=== PATIENT | female | born 2005 | race Caucasian/White ===

== ENCOUNTER 2024-05-05 13:09 | Emergency (ER) | payer BC ==
[2024-05-05] MEDS ORDERED: HYDROcodone/Acetaminophen 5/325 mg Tablet ONE (14:56)
== END 2024-05-05 15:17 | disposition home or self-care (01) ==
LOC: CSHERS 13:09
DX: K13.79 Other lesions of oral mucosa (principal); K08.89 Other specified disorders of teeth and supporting structures; F17.290 Nicotine dependence, other tobacco product, uncomplicated
CPT/HCPCS: 99282